=== PATIENT | female | born 1995 | race Caucasian/White ===

== ENCOUNTER 2017-08-07 13:28 | Emergency (ER) | payer OTHER ==
[2017-08-07 14:21] VITALS: BP 93/58
--- NOTE | 2017-08-07 14:27 | UC ---
Respiratory Complaint HPI - HPI Summary HPI Summary: Pt c/o cough and nasal congestion X 4 weeks. Denies fever, SOB or wheezing. - History of Current Complaint Chief Complaint: UCGeneralIllness Stated Complaint: COUGH RUNNY NOSE SORE THROAT Time Seen by Provider: 08/07/17 14:26 Hx Obtained From: Patient Hx Last Menstrual Period: 08/07/16 ?: No Onset/Duration: Gradual Onset, Lasting Weeks - 4, Still Present Timing: Intermittent Episodes Severity Initially: Mild Severity Currently: Mild Character: Cough: Nonproductive Aggravating Factors: Deep Breaths, Recumbent Position Alleviating Factors: Spontaneous Resolution Associated Signs And Symptoms: Positive: URI, Nasal Congestion - Risk Factors Pulmonary Embolism Risk Factors: Smoking Cardiac Risk Factors: Smoking Tuberculosis Risk Factors: Smoking - Allergies/Home Medications Allergies/Adverse Reactions: Allergies Allergy/AdvReac Type Severity Reaction Status Date / Time No Known Allergies Allergy Verified 08/07/17 14:21 PMH/Surg Hx/FS Hx/Imm Hx Previously Healthy: Yes - Surgical History Surgical History: Yes Surgery Procedure, Year, and Place: tonsilectomy, 1999, [facility] - Family History Known Family History: Positive: Hypertension - Social History Occupation: Employed Full-time Lives: With Family Alcohol Use: Rare Substance Use Type: None Smoking Status (MU): Heavy Every Day Tobacco Smoker Type: Cigarettes Amount Used/How Often: 1/2 PPD Length of Time of Smoking/Using Tobacco: 5 Years Have You Smoked in the Last Year: Yes - Immunization History Most Recent Influenza Vaccination: NOT CURRENT Vaccination Up to Date: Yes Review of Systems Constitutional: Negative Skin: Negative Eyes: Negative ENT: Sinus Congestion Respiratory: Cough Cardiovascular: Negative Gastrointestinal: Negative Genitourinary: Negative Motor: Negative Neurovascular: Negative Musculoskeletal: Negative Neurological: Negative Psychological: Negative Is Patient Immunocompromised?: No All Other Systems Reviewed And Are Negative: Yes Physical Exam Triage Information Reviewed: Yes Appearance: Well-Appearing Vital Signs: Initial Vital Signs Temp 98.3 F 08/07/17 14:17 Pulse 73 08/07/17 14:17 Resp 18 08/07/17 14:17 BP 93/58 08/07/17 14:17 Pulse Ox 100 08/07/17 14:17 Vital Signs Reviewed: Yes Eye Exam: Normal ENT Exam: Other ENT: Positive: Nasal congestion, Other - tongue ring Dental Exam: Normal Neck exam: Normal Respiratory Exam: Normal Cardiovascular Exam: Normal Musculoskeletal Exam: Normal Neurological Exam: Normal Psychological Exam: Normal Skin Exam: Normal UC Diagnostic Evaluation - Laboratory O2 Sat by Pulse Oximetry: 100 Respiratory Course/Dx - Differential Dx/Diagnosis Differential Diagnosis/HQI/PQRI: Bronchitis, Other - URI Provider Diagnoses: cough. URI Discharge - Discharge Plan Condition: Stable Disposition: HOME Prescriptions: Benzonatate CAP* [Tessalon 100 MG CAP*] 100 mg PO Q8H PRN #21 cap PRN Reason: Cough Patient Education Materials: Acute Cough (ED) Referrals: No Primary Care Phys,NOPCP [Primary Care Provider] - If Needed
== END 2017-08-07 14:37 | disposition home or self-care (01) ==
LOC: UCCORT 13:30
DX: J06.9 Acute upper respiratory infection, unspecified (principal); R05 Cough; F17.210 Nicotine dependence, cigarettes, uncomplicated
CPT/HCPCS: 99212; G0463

== ENCOUNTER 2017-09-09 14:13 | Emergency (ER) | payer OTHER ==
[2017-09-09 15:58] VITALS: BP 102/59
[2017-09-09] MEDS ORDERED: Acetaminophen TAB* 325 MG PO ONE (16:14)
--- NOTE | 2017-09-09 16:14 | UC ---
FLU HPI - HPI Summary HPI Summary: Pt c/o sudden onset of fatigue, fever, chills, sore throat, right side neck pain , right ear pain and generalized body aches X 1 day. Pt took genevieve epregnancy test yesterday, positive- wants confirmation. - History of Current Complaint Chief Complaint: UCGeneralIllness Stated Complaint: FLU SXS Time Seen by Provider: 09/09/17 15:55 Hx Obtained From: Patient Hx Last Menstrual Period: 08/07/16 ?: Yes Onset/Duration: Sudden Onset Severity Currently: Moderate Severity Initially: Moderate Pain Intensity: 7 Associated Signs & Symptoms: Positive: Fever, Myalgia, Sore Throat, Nasal Congestion, Headache Related Hx: Possible Flu/Infectious Exposure - Risk Factors Influenza Risk Factors: Negative - Allergy/Home Medications Allergies/Adverse Reactions: Allergies Allergy/AdvReac Type Severity Reaction Status Date / Time No Known Allergies Allergy Verified 09/09/17 15:47 PMH/Surg Hx/FS Hx/Imm Hx Previously Healthy: Yes - Surgical History Surgical History: Yes Surgery Procedure, Year, and Place: tonsilectomy, 1999, [facility] - Family History Known Family History: Positive: Hypertension - Social History Lives: With Family Alcohol Use: Rare Substance Use Type: None Smoking Status (MU): Current Every Day Smoker Type: Cigarettes Amount Used/How Often: 1/2 PPD Length of Time of Smoking/Using Tobacco: 5 Years Have You Smoked in the Last Year: Yes When Did the Patient Quit Smoking/Using Tobacco: PT HOPING TO QUIT DUE TO Cessation Counseling: Patient Advised to Stop - Immunization History Most Recent Influenza Vaccination: NOT CURRENT Vaccination Up to Date: Yes Review of Systems Constitutional: Fever, Chills, Fatigue Skin: Negative Eyes: Negative ENT: Sore Throat Respiratory: Negative Cardiovascular: Negative Gastrointestinal: Negative Genitourinary: Negative Motor: Negative Neurovascular: Negative Musculoskeletal: Myalgia Neurological: Headache Psychological: Negative Is Patient Immunocompromised?: No All Other Systems Reviewed And Are Negative: Yes Physical Exam Triage Information Reviewed: Yes Appearance: Ill-Appearing Vital Signs: Initial Vital Signs Temp 100.3 F 09/09/17 15:50 Pulse 91 09/09/17 15:50 Resp 18 09/09/17 15:50 BP 102/59 09/09/17 15:50 Pulse Ox 100 09/09/17 15:50 Vital Signs Reviewed: Yes Eye Exam: Normal ENT Exam: Other ENT: Positive: Nasal congestion Dental Exam: Normal Neck exam: Other Neck: Positive: Enlarged Nodes @ - right side submaxillary Respiratory Exam: Normal Cardiovascular Exam: Normal Musculoskeletal Exam: Normal Neurological Exam: Normal Psychological Exam: Normal Skin Exam: Normal Flu Course/Dx - Differential Dx/Diagnosis Differential Diagnosis/HQI/PQRI: Influenza, Other - . Provider Diagnoses: Influenza A. Discharge - Discharge Plan Condition: Stable Disposition: HOME Prescriptions: Pnv No.95/Ferrous Fum/Folic AC [ Tablet] 1 each PO DAILY #30 tablet Patient Education Materials: Influenza (ED), at 7 to 10 Weeks (ED) Forms: *Work Release Referrals: Dominic Chavez MD [Primary Care Provider] - Additional Instructions: Please follow up with your PCP or return to clinic as needed. Please establish care with a OB provider as soon as possible.
== END 2017-09-09 16:36 | disposition home or self-care (01) ==
LOC: UCCORT 14:13
DX: O99.519 Diseases of the respiratory system complicating pregnancy, unspecified trimester (principal); O99.330 Smoking (tobacco) complicating pregnancy, unspecified trimester; F17.210 Nicotine dependence, cigarettes, uncomplicated; J09.X2 Influenza due to identified novel influenza A virus with other respiratory manifestations
CPT/HCPCS: 84702; 87502; 99212; A9270-GY; G0463

== ENCOUNTER 2017-09-21 18:51 | Emergency (ER) | payer OTHER ==
[2017-09-21 19:36] VITALS: BP 107/56
--- NOTE | 2017-09-21 19:56 | UC ---
UC General HPI - HPI Summary HPI Summary: PT STATES SHE IS HAVING PAIN IN LOWER PELVIC AREA. SHE STATES IT MAY BE AN OVARIAN CYST THAT RUPTURED BECAUSE IT FEELS SIMILAR TO THAT BUT ALSO NOTES SHE IS 6 WEEKS WELL. DENIES VAGINAL D/C AND BLEEDING. . NO FEVER, V/ D/DYSURIA. - History of Current Complaint Chief Complaint: UCGeneralIllness Stated Complaint: PELVIC PAIN Time Seen by Provider: 09/21/17 19:46 Hx Obtained From: Patient Hx Last Menstrual Period: 08/07/16 Onset/Duration: Sudden Onset Timing: Constant Pain Intensity: 6 Associated Signs & Symptoms: Negative: Dizziness, Diarrhea, Dysuria, Fever - Allergy/Home Medications Allergies/Adverse Reactions: Allergies Allergy/AdvReac Type Severity Reaction Status Date / Time No Known Allergies Allergy Verified 09/21/17 19:30 PMH/Surg Hx/FS Hx/Imm Hx - Additional Past Medical History Additional PMH: OVARIAN CYSTS, 6 WEEKS Previously Healthy: Yes - Surgical History Surgical History: Yes Surgery Procedure, Year, and Place: tonsilectomy, 1999, [facility] - Family History Known Family History: Positive: Hypertension - Social History Occupation: Employed Full-time Lives: With Family Alcohol Use: Rare Alcohol Amount: NONE DURING Substance Use Type: None Smoking Status (MU): Former Smoker Type: Cigarettes Amount Used/How Often: 1/2 PPD Length of Time of Smoking/Using Tobacco: 5 Years Have You Smoked in the Last Year: Yes When Did the Patient Quit Smoking/Using Tobacco: 3 DAYS - Immunization History Most Recent Influenza Vaccination: NOT CURRENT Vaccination Up to Date: Yes Review of Systems Constitutional: Negative Skin: Negative Eyes: Negative ENT: Negative Respiratory: Negative Cardiovascular: Negative Gastrointestinal: Abdominal Pain Genitourinary: Negative Motor: Negative Neurovascular: Negative Musculoskeletal: Negative Neurological: Negative Psychological: Negative Is Patient Immunocompromised?: No All Other Systems Reviewed And Are Negative: Yes Physical Exam Triage Information Reviewed: Yes Appearance: Well-Appearing Vital Signs: Initial Vital Signs Temp 98.7 F 09/21/17 19:31 Pulse 87 09/21/17 19:31 Resp 22 09/21/17 19:31 BP 107/56 09/21/17 19:31 Pulse Ox 100 09/21/17 19:31 Eyes: Positive: Conjunctiva Clear ENT: Positive: Normal ENT inspection Neck: Positive: Supple, Nontender, No Lymphadenopathy Respiratory: Positive: Lungs clear, Normal breath sounds, No respiratory distress Cardiovascular: Positive: RRR, No Murmur, Pulses Normal Abdomen Description: Positive: No Organomegaly, Soft, Other: - Tender R lower abdomen. Negative: CVA Tenderness (R), CVA Tenderness (L), Distended, Guarding Bowel Sounds: Positive: Present Musculoskeletal Exam: Normal Neurological: Positive: Alert Psychological: Positive: Age Appropriate Behavior Skin Exam: Normal Course/Dx - Course Course Of Treatment: has not seen ob yet and no u/s thus r/o ectopic. doubt bowel pathology/appendicitis. - Differential Dx - Multi-Symptom Provider Diagnoses: R lower abdominal pain. 6 weeks . r/o ectopic preganacy Discharge - Discharge Plan Condition: Stable Disposition: TRANS HIGHER LVL OF CARE FAC Referrals: Dominic Chavez MD [Primary Care Provider] - Additional Instructions: GO DIRECTLY TO THE ER FROM URGENT CARE FOR EVALUATION OF PELVIC PAIN WITH
== END 2017-09-21 20:00 | disposition short-term general hospital (02) ==
LOC: UCCORT 18:51
DX: Z53.21 Procedure and treatment not carried out due to patient leaving prior to being seen by health care provider (principal); O26.891 Other specified pregnancy related conditions, first trimester; Z3A.01 Less than 8 weeks gestation of pregnancy; R10.2 Pelvic and perineal pain
CPT/HCPCS: 99211; G0463

== ENCOUNTER 2018-02-19 12:40 | Emergency (ER) | payer OTHER ==
[2018-02-19 13:07] VITALS: BP 122/53
--- NOTE | 2018-02-19 13:53 | UC ---
Dental HPI - HPI Summary HPI Summary: Pt c/o sudden onset of right upper tooth pain. Pt states that she "broke her tooth" 3-4 months ago and now has c/o swelling tenderness at gum line of fractured tooth. - History of Current Complaint Chief Complaint: UCDentalProblem Stated Complaint: DENTAL COMPLAINT Time Seen by Provider: 02/19/18 13:45 Hx Obtained From: Patient Hx Last Menstrual Period: past month after going off depo ?: No Onset/Duration: Sudden Onset, Lasting Days, Still Present Severity: Moderate Pain Intensity: 6 Aggravating Factor(s): Heat, Cold, Chewing Related History: Swelling - Allergies/Home Medications Allergies/Adverse Reactions: Allergies Allergy/AdvReac Type Severity Reaction Status Date / Time No Known Allergies Allergy Verified 02/19/18 13:01 Home Medications: Home Medications Naproxen Sodium [Aleve] 440 mg PO BID PRN 02/19/18 [History Confirmed 02/19/18] PMH/Surg Hx/FS Hx/Imm Hx Previously Healthy: Yes - Surgical History Surgical History: Yes Surgery Procedure, Year, and Place: tonsilectomy, 1999, [facility] - Family History Known Family History: Positive: Hypertension - Social History Occupation: Employed Full-time Lives: With Family Alcohol Use: Rare Alcohol Amount: NONE DURING Substance Use Type: None Smoking Status (MU): Heavy Every Day Tobacco Smoker Type: Cigarettes Amount Used/How Often: 1/2 PPD Length of Time of Smoking/Using Tobacco: 5 Years Have You Smoked in the Last Year: Yes When Did the Patient Quit Smoking/Using Tobacco: 3 DAYS - Immunization History Most Recent Influenza Vaccination: NOT CURRENT Vaccination Up to Date: Yes Review of Systems Constitutional: Negative Skin: Other - swelling right cheek Eyes: Negative ENT: Dental Pain Respiratory: Negative Cardiovascular: Negative Gastrointestinal: Negative Genitourinary: Negative Motor: Negative Neurovascular: Negative Musculoskeletal: Negative Neurological: Negative Psychological: Negative Is Patient Immunocompromised?: No All Other Systems Reviewed And Are Negative: Yes Physical Exam Triage Information Reviewed: Yes Appearance: Pain Distress Vital Signs: Initial Vital Signs Temp 99 F 02/19/18 13:02 Pulse 82 02/19/18 13:02 Resp 14 02/19/18 13:02 BP 122/53 02/19/18 13:02 Pulse Ox 98 02/19/18 13:02 Vital Signs Reviewed: Yes Eye Exam: Normal ENT Exam: Normal Dental Exam: Other Dental: Positive: Percussion Tenderness @ - fractured tooth, Dental Fracture @ - right upper first molar Neck exam: Normal Neck: Positive: Enlarged Nodes @ - right submandibular Respiratory Exam: Normal Cardiovascular Exam: Normal Musculoskeletal Exam: Normal Neurological Exam: Normal Psychological Exam: Normal Skin Exam: Normal Dental Complaint Course/Dx - Differential Dx/Diagnosis Differential Diagnosis/Dx: Dental Abscess, Dental Caries, Fractured Tooth Provider Diagnoses: fractured tooth. dental abscess Discharge - Sign-Out/Discharge Documenting (check all that apply): Patient Departure - Discharge Plan Condition: Stable Disposition: HOME Prescriptions: Clindamycin Cap(NF) [Clindamycin Cap 300 mg Cap(NF)] 300 mg PO Q8H #30 cap Fluconazole 100 MG TAB* [Diflucan 100 MG TAB*] 100 mg PO DAILY #2 tab Lidocaine 2% VISCOUS* [Xylocaine 2% Viscous*] 15 ml SWISH SPIT Q4H PRN #1 btl PRN Reason: Pain Patient Education Materials: Dental Abscess (ED), Toothache (ED) Referrals: No Primary Care Phys,NOPCP [Primary Care Provider] - - Billing Disposition and Condition Condition: STABLE Disposition: Home
== END 2018-02-19 14:06 | disposition home or self-care (01) ==
LOC: UCCORT 12:40
DX: K04.7 Periapical abscess without sinus (principal); S02.5XXA Fracture of tooth (traumatic), initial encounter for closed fracture; F17.210 Nicotine dependence, cigarettes, uncomplicated; X58.XXXA Exposure to other specified factors, initial encounter; Y92.9 Unspecified place or not applicable
CPT/HCPCS: 99212; G0463

== ENCOUNTER 2018-05-13 16:21 | Emergency (ER) | payer OTHER ==
[2018-05-13 16:56] VITALS: BP 110/61
--- NOTE | 2018-05-13 16:57 | UC ---
Throat Pain/Nasal Magdaleno HPI - HPI Summary HPI Summary: 23 yo female presents with body aches, fatigue, nausea, vomiting, and headache for the last 3 days - all have significantly improved today. She also tells me that 2 days ago she was hurrying doing laundry and was bent over by her dresser - when she came up she hit the back of her head on the open drawer. No LOC. Since that time has had TTP in the area. Has not been taking anything OTC for her symptoms. She missed yesterday and today of work and is requesting a note. She feels well enough and plans to return tomorrow. Denies fever, chills, cough , SOB, chest pain, abdominal pain, dysuria, or chance of . - History of Current Complaint Chief Complaint: UCGeneralIllness Stated Complaint: COLD CHILLS/CAIN/BUMP OM HEAD Time Seen by Provider: 05/13/18 16:56 Hx Obtained From: Patient Hx Last Menstrual Period: 05/09/18 Onset/Duration: Sudden Onset Severity: Mild Pain Intensity: 4 Pain Scale Used: 0-10 Numeric - Allergies/Home Medications Allergies/Adverse Reactions: Allergies Allergy/AdvReac Type Severity Reaction Status Date / Time No Known Allergies Allergy Verified 05/13/18 16:53 Home Medications: Home Medications Ibuprofen 600 mg PO ONCE 05/13/18 [History Confirmed 05/13/18] PMH/Surg Hx/FS Hx/Imm Hx - Additional Past Medical History Additional PMH: None - Surgical History Surgical History: Yes Surgery Procedure, Year, and Place: tonsilectomy, 1999, [facility] - Family History Known Family History: Positive: Hypertension - Social History Occupation: Employed Full-time Lives: With Family Alcohol Use: Rare Alcohol Amount: NONE DURING Substance Use Type: None Smoking Status (MU): Heavy Every Day Tobacco Smoker Type: Cigarettes Amount Used/How Often: 1/2 PPD Length of Time of Smoking/Using Tobacco: 5 Years Have You Smoked in the Last Year: Yes When Did the Patient Quit Smoking/Using Tobacco: 3 DAYS - Immunization History Most Recent Influenza Vaccination: NOT CURRENT Vaccination Up to Date: Yes Review of Systems Constitutional: Fatigue, Other - Body aches Skin: Negative Eyes: Negative ENT: Negative Respiratory: Negative Cardiovascular: Negative Gastrointestinal: Vomiting, Nausea Genitourinary: Negative Neurovascular: Negative Neurological: Headache Psychological: Negative All Other Systems Reviewed And Are Negative: Yes Physical Exam - Summary Physical Exam Summary: GENERAL: NAD. WDWN. No pain distress. SKIN: No rashes, sores, lesions, or open wounds. HEENT: Head: AT/NC. No mora's sign or raccoon eyes. Eyes: EOM intact. Conjunctiva clear without inflammation or discharge. Ears: Hearing grossly normal. TMs intact, no bulging, erythema, or edema. Nose: Nasal mucosa pink and moist. NTTP maxillary and frontal sinus. Throat: Posterior oropharynx without exudates, erythema, or tonsillar enlargement. Uvula midline. NECK: Supple. Nontender. No lymphadenopathy. CHEST: CTAB. No r/r/w. No accessory muscle use. Breathing comfortably and in no distress. CV: RRR. Without m/r/g. Pulses intact. Cap refill <2seconds NEURO: Alert. PSYCH: Age appropriate behavior. Triage Information Reviewed: Yes Vital Signs: Initial Vital Signs Temp 98.1 F 05/13/18 16:50 Pulse 91 05/13/18 16:50 Resp 14 05/13/18 16:50 BP 110/61 05/13/18 16:50 Pulse Ox 99 05/13/18 16:50 Vital Signs Reviewed: Yes Throat Pain/Nasal Course/Dx - Course Course Of Treatment: PE is WNL and she is feeling better today. Suspect viral illness - Differential Dx/Diagnosis Provider Diagnoses: Viral syndrome Discharge - Sign-Out/Discharge Documenting (check all that apply): Patient Departure All imaging exams completed and their final reports reviewed: No Studies - Discharge Plan Condition: Stable Disposition: HOME Prescriptions: Ondansetron TAB* [Zofran 4 MG Tab*] 4 mg PO Q8H PRN #16 tab PRN Reason: Nausea Patient Education Materials: Viral Syndrome (ED) Forms: *Work Release Referrals: No Primary Care Phys,NOPCP [Primary Care Provider] - Additional Instructions: If you develop a fever, shortness of breath, chest pain, new or worsening symptoms - please call your PCP or go to the ED. - Billing Disposition and Condition Condition: STABLE Disposition: Home - Attestation Statements Provider Attestation: I was available for consult. This patient was seen by the CHRISTINA. The patient was not presented to, seen by, or examined by me. -Yvette
== END 2018-05-13 17:07 | disposition home or self-care (01) ==
LOC: UCCORT 16:21
DX: B34.9 Viral infection, unspecified (principal); F17.210 Nicotine dependence, cigarettes, uncomplicated
CPT/HCPCS: 99212; G0463

== ENCOUNTER 2018-06-30 12:12 | Emergency (ER) | payer OTHER ==
--- NOTE | 2018-06-30 12:28 | UC ---
Throat Pain/Nasal Magdaleno HPI - HPI Summary HPI Summary: 23 yo female presents with sinus pain/pressure/congestion, sore throat, productive cough, and fatigue for the last 10 days. Getting increasingly worse. The last two nights she has had a temperature of 100.3F max. 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 She has been taking dayquill daily with no relief. She is still smoking daily. Denies SOB, chest pain, n/v. She also complaints of "white spots" to her back that are mildly itchy at times. She does go tanning often. These spots have been there for a few weeks. - History of Current Complaint Stated Complaint: CAIN,RUNNY NOSE,BILAT EAR AIN,COUGH Time Seen by Provider: 06/30/18 12:27 Hx Obtained From: Patient Hx Last Menstrual Period: 05/09/18 Onset/Duration: Gradual Onset Severity: Moderate Pain Intensity: 5 Pain Scale Used: 0-10 Numeric Cough: Productive - Allergies/Home Medications Allergies/Adverse Reactions: Allergies Allergy/AdvReac Type Severity Reaction Status Date / Time No Known Allergies Allergy Verified 06/30/18 12:27 Home Medications: Home Medications D-Methorphan/PE/Acetaminophen [Vicks Dayquil Cold & Flu] 2 cap PO Q6H PRN [History Confirmed 06/30/18] Ibuprofen TAB* [Advil TAB*] 800 mg PO Q8H PRN 06/30/18 [History Confirmed ] PMH/Surg Hx/FS Hx/Imm Hx - Additional Past Medical History Additional PMH: None - Surgical History Surgical History: Yes Surgery Procedure, Year, and Place: tonsilectomy, 1999, [facility] - Family History Known Family History: Positive: Hypertension - Social History Occupation: Student Lives: With Family Alcohol Use: Rare Alcohol Amount: NONE DURING Substance Use Type: None Smoking Status (MU): Heavy Every Day Tobacco Smoker Type: Cigarettes Amount Used/How Often: 1/2 PPD Length of Time of Smoking/Using Tobacco: 5 Years Have You Smoked in the Last Year: Yes When Did the Patient Quit Smoking/Using Tobacco: 3 DAYS - Immunization History Most Recent Influenza Vaccination: NOT CURRENT Vaccination Up to Date: Yes Review of Systems All Other Systems Reviewed And Are Negative: Yes Constitutional: Positive: Fever, Fatigue Skin: Positive: Rash Eyes: Positive: Negative ENT: Positive: Sore Throat, Ear Ache, Nasal Discharge, Sinus Congestion, Sinus Pain/Tenderness Respiratory: Positive: Cough Cardiovascular: Positive: Negative Gastrointestinal: Positive: Negative Neurovascular: Positive: Negative Neurological: Positive: Negative Psychological: Positive: Negative Physical Exam - Summary Physical Exam Summary: GENERAL: NAD. WDWN. No pain distress. SKIN: On upper back: Multiple 3-4mm diameter hypopigmentated areas. Scant scaling. NTTP. No erythema, drainage, or open wound. HEENT: Head: AT/NC Eyes: EOM intact. Conjunctiva clear without inflammation or discharge. Ears: Hearing grossly normal. TMs intact, no bulging, erythema, or edema. Nose: Nasal mucosa mildly swollen and erythematous with yellow discharge. TTP maxillary and frontal sinus. Positive post nasal drip Throat: Posterior oropharynx without exudates or erythema. Uvula midline. NECK: Supple. Nontender. No lymphadenopathy. CHEST: CTAB. No r/r/w. No accessory muscle use. Breathing comfortably and in no distress. CV: RRR. Without m/r/g. Pulses intact. NEURO: Alert. PSYCH: Age appropriate behavior. Triage Information Reviewed: Yes Vital Signs: Vital Signs: Temp Pulse Resp BP Pulse Ox 98.6 F 96 16 101/66 100 06/30/18 12:25 06/30/18 12:25 06/30/18 12:25 06/30/18 12:25 06/30/18 12:25 Vital Signs Reviewed: Yes Throat Pain/Nasal Course/Dx - Course Course Of Treatment: Sinusitis. Cough. Tinea versicolor. - Differential Dx/Diagnosis Provider Diagnosis: Sinusitis, Tinea versicolor, Cough Discharge - Sign-Out/Discharge Documenting (check all that apply): Patient Departure All imaging exams completed and their final reports reviewed: No Studies - Discharge Plan Condition: Stable Disposition: HOME Prescriptions: Azithromycin TAB* [Zithromax TAB (Z-ESME) 250 mg #6 tabs] 2 tab PO .TODAY, THEN 1 DAILY #1 esme Ketoconazole 2 % CREAM (NF) [Nizoral 2% CREAM (NF)] 1 applic TOPICAL BID #1 tube Patient Education Materials: Sinusitis (ED), Tinea Versicolor (ED) Forms: *Work Release Referrals: No Primary Care Phys,NOPCP [Primary Care Provider] - Additional Instructions: If you develop a fever, shortness of breath, chest pain, new or worsening symptoms - please call your PCP or go to the ED. - Billing Disposition and Condition Condition: STABLE Disposition: Home
[2018-06-30 12:31] VITALS: BP 101/66
== END 2018-06-30 12:45 | disposition home or self-care (01) ==
LOC: UCCORT 12:12
DX: J32.9 Chronic sinusitis, unspecified (principal); B36.0 Pityriasis versicolor; R05 Cough; F17.210 Nicotine dependence, cigarettes, uncomplicated
CPT/HCPCS: 99212; G0463

== ENCOUNTER 2018-07-28 09:06 | Emergency (ER) | payer OTHER ==
[2018-07-28 10:05] LABS: ABS Basophils 0 10^3/ul (0-0.2); ABS Eosinophils 0.1 10^3/ul (0-0.6); ABS Lymphocytes 1.5 10^3/ul (1.0-4.8); ABS Monocytes 0.3 10^3/ul (0-0.8); ABS Neutrophils 2.3 10^3/ul (1.5-7.7); ABS Nucleated RBC 0 10^3/ul; Hematocrit 40 % (35-47); Hemoglobin 13.6 g/dl (12.0-16.0); Lymphocyte % 35.7 %; Mean Corpuscular HGB Conc 34 g/dl (31-36); Mean Corpuscular Hemoglobin 29 pg (27-31); Mean Corpuscular Volume 86 fL (80-97); Mean Platelet Volume 10.6 fL (7.4-10.4); Nucleated Red Blood Cells % 0; Platelet Count 152 10^3/ul (150-450); Red Blood Count 4.71 10^6/ul (4.00-5.40); Red Cell Distribution Width 13 % (10.5-15); White Blood Count 4.3 10^3/ul (3.5-10.8)
[2018-07-28 10:26] LABS: ALT 17 U/L (7-52); AST 17 U/L (13-39); Albumin 4.7 g/dL (3.2-5.2); Alkaline Phosphatase 40 U/L (34-104); Anion Gap 6 mmol/L (2-11); BUN/Creatinine Ratio 10.2 (8-20); Blood Urea Nitrogen 9 mg/dL (6-24); CO2 Carbon Dioxide 26 mmol/L (22-32); Calcium 9.8 mg/dL (8.6-10.3); Chloride 108 mmol/L (101-111); EGFR Non-African American 79.6 (>60); Globulin 2.3 g/dL (2-4); Glucose 93 mg/dL (70-100); Magnesium 1.9 mg/dL (1.9-2.7); Potassium 3.8 mmol/L (3.5-5.0); Sodium 140 mmol/L (135-145)
[2018-07-28 10:31] LABS: HCG Pregnancy < 0.60 mIU/mL
[2018-07-28 11:11] VITALS: BP 122/61
--- NOTE | 2018-07-28 11:43 | ED ---
HPI Chest Pain - HPI Summary HPI Summary: Patient is a 23-year-old female with an unremarkable past medical history presenting to the ED with left-sided chest pain radiating down to the left shoulder. She states she took a caffeine pill yesterday and is feelingthat time. She does have a history of anxiety and states this feels somewhat similar. Pain is intermittent, sharp, radiating to the left arm feels "heavy." She denies any fevers, sweats, chills. Denies any SOB. Denies any other weakness or other symptoms at this time. She has not taken any medication for relief. She did not have caffeine this morning. Symptoms are not better with rest or worse with exertion. - History of Current Complaint Chief Complaint: EDChestPainROMI Time Seen by Provider: 07/28/18 09:31 Hx Obtained From: Patient Hx Last Menstrual Period: 05/09/18 Onset/Duration: Started Hours Ago Timing: Constant Initial Severity: Moderate Current Severity: Moderate Pain Intensity: 4 Pain Scale Used: 0-10 Numeric Chest Pain Location: Left Anterior Chest Pain Radiates: Yes Chest Pain Radiates To:: Shoulder, Arm Character: Dull/Aching Aggravating Factor(s): Nothing Associated Signs and Symptoms: Positive: Anxiety. Negative: Chest Pain, Vision Changes, Recent Stress, Headaches, Numbness, Lightheadedness, Diaphoresis, Palpitations, Productive Cough - Risk Factors Pulmonary Embolism Risk Factors: Negative TAD Risk Factors: Negative - Allergy/Home Medications Allergies/Adverse Reactions: Allergies Allergy/AdvReac Type Severity Reaction Status Date / Time No Known Allergies Allergy Verified 07/28/18 09:21 Home Medications: Home Medications Multivitamin [Multivitamins] 1 cap PO DAILY 07/28/18 [History Confirmed 07/28/18 ] PMH/Surg Hx/FS Hx/Imm Hx Previously Healthy: Yes Endocrine/Hematology History: Denies: Hx Thyroid Disease Cardiovascular History: Denies: Hx Hypertension Respiratory History: Denies: Hx Asthma, Hx Lung Cancer - Surgical History Surgery Procedure, Year, and Place: tonsilectomy, 1999, [facility] - Immunization History Hx Pertussis Vaccination: No Immunizations Up to Date: Yes Infectious Disease History: No Infectious Disease History: Reports: Hx Shingles Denies: Hx Clostridium Difficile, Hx Hepatitis, Hx Human Immunodeficiency Virus (HIV), Hx of Known/Suspected MRSA, Hx Tuberculosis, Hx Known/Suspected VRE , Hx Known/Suspected VRSA, History Other Infectious Disease, Traveled Outside the [place] in Last 30 Days - Family History Known Family History: Positive: Hypertension - Social History Occupation: Employed Full-time Lives: With Family Alcohol Use: Rare Alcohol Amount: NONE DURING Hx Substance Use: No Substance Use Type: Reports: None Hx Tobacco Use: Yes Smoking Status (MU): Light Every Day Tobacco Smoker Type: Cigarettes Amount Used/How Often: 1/2 PPD Length of Time of Smoking/Using Tobacco: 5 Years Have You Smoked in the Last Year: Yes Review of Systems Negative: Fever, Chills, Fatigue, Skin Diaphoresis Negative: Dental Pain, Sore Throat, Ear Ache, Nasal Discharge Positive: Chest Pain Negative: Shortness Of Breath, Cough Negative: Abdominal Pain, Diarrhea, Nausea Genitourinary: Negative Positive: no symptoms reported, see HPI Positive: Myalgia - left arm pain described as "heavy" Skin: Negative Positive: Anxious All Other Systems Reviewed And Are Negative: Yes Physical Exam Triage Information Reviewed: Yes Vital Signs On Initial Exam: Initial Vitals Temp Pulse Resp BP Pulse Ox 98.1 F 81 16 123/85 100 07/28/18 09:17 07/28/18 09:17 07/28/18 09:17 07/28/18 09:17 07/28/18 09:17 Vital Signs Reviewed: Yes Appearance: Positive: Well-Appearing, Well-Nourished Skin: Positive: Warm, Skin Color Reflects Adequate Perfusion Head/Face: Positive: Normal Head/Face Inspection Eyes: Positive: EOMI, JES, Conjunctiva Clear Neck: Positive: Supple, No Lymphadenopathy Respiratory/Lung Sounds: Positive: Clear to Auscultation, Breath Sounds Present Cardiovascular: Positive: RRR, Pulses are Symmetrical in both Upper and Lower Extremities. Negative: Leg Edema Left, Leg Edema Right Bowel Sounds: Positive: Present Musculoskeletal: Positive: Normal Neurological: Positive: Sensory/Motor Intact, Alert, Oriented to Person Place, Time, Speech Normal Psychiatric: Positive: Normal, Affect/Mood Appropriate Diagnostics - Vital Signs Vital Signs Temp Pulse Resp BP Pulse Ox 07/28/18 11:11 98.9 F 93 17 122/61 100 07/28/18 11:00 85 16 100 07/28/18 10:51 77 13 122/61 99 07/28/18 10:06 80 26 124/65 100 07/28/18 10:00 83 17 99 07/28/18 09:37 86 18 113/83 99 07/28/18 09:35 75 26 99 07/28/18 09:17 98.1 F 81 16 123/85 100 - Laboratory Lab Results: Lab Results 07/28/18 07/28/18 07/28/18 Range/Units 09:50 09:50 09:50 WBC 4.3 (3.5-10.8) 10^3/ul RBC 4.71 (4.00-5.40) 10^6/ul Hgb 13.6 (12.0-16.0) g/dl Hct 40 (35-47) % MCV 86 (80-97) fL MCH 29 (27-31) pg MCHC 34 (31-36) g/dl RDW 13 (10.5-15) % Plt Count 152 (150-450) 10^3/ul MPV 10.6 H (7.4-10.4) fL Neut % (Auto) 53.8 % Lymph % (Auto) 35.7 % Dodge % (Auto) 7.8 % Eos % (Auto) 2.0 % Baso % (Auto) 0.7 % Absolute Neuts (auto) 2.3 (1.5-7.7) 10^3/ul Absolute Lymphs (auto) 1.5 (1.0-4.8) 10^3/ul Absolute Monos (auto) 0.3 (0-0.8) 10^3/ul Absolute Eos (auto) 0.1 (0-0.6) 10^3/ul Absolute Basos (auto) 0 (0-0.2) 10^3/ul Absolute Nucleated RBC 0 10^3/ul Nucleated RBC % 0 D-Dimer, Quantitative (Less Than 230) ng/mL Sodium 140 (135-145) mmol/L Potassium 3.8 (3.5-5.0) mmol/L Chloride 108 (101-111) mmol/L Carbon Dioxide 26 (22-32) mmol/L Anion Gap 6 (2-11) mmol/L BUN 9 (6-24) mg/dL Creatinine 0.88 (0.51-0.95) mg/dL Est GFR ( Amer) 96.4 (>60) Est GFR (Non-Af Amer) 79.6 (>60) BUN/Creatinine Ratio 10.2 (8-20) Glucose 93 (70-100) mg/dL Lactic Acid 0.9 (0.5-2.0) mmol/L Calcium 9.8 (8.6-10.3) mg/dL Magnesium 1.9 (1.9-2.7) mg/dL Total Bilirubin 0.70 (0.2-1.0) mg/dL AST 17 (13-39) U/L ALT 17 (7-52) U/L Alkaline Phosphatase 40 (34-104) U/L Troponin I 0.00 (<0.04) ng/mL Total Protein 7.0 (6.4-8.9) g/dL Albumin 4.7 (3.2-5.2) g/dL Globulin 2.3 (2-4) g/dL Albumin/Globulin Ratio 2.0 (1-3) Beta HCG, Quant < 0.60 mIU/mL 07/28/18 Range/Units 09:50 WBC (3.5-10.8) 10^3/ul RBC (4.00-5.40) 10^6/ul Hgb (12.0-16.0) g/dl Hct (35-47) % MCV (80-97) fL MCH (27-31) pg MCHC (31-36) g/dl RDW (10.5-15) % Plt Count (150-450) 10^3/ul MPV (7.4-10.4) fL Neut % (Auto) % Lymph % (Auto) % Dodge % (Auto) % Eos % (Auto) % Baso % (Auto) % Absolute Neuts (auto) (1.5-7.7) 10^3/ul Absolute Lymphs (auto) (1.0-4.8) 10^3/ul Absolute Monos (auto) (0-0.8) 10^3/ul Absolute Eos (auto) (0-0.6) 10^3/ul Absolute Basos (auto) (0-0.2) 10^3/ul Absolute Nucleated RBC 10^3/ul Nucleated RBC % D-Dimer, Quantitative < 200 (Less Than 230) ng/mL Sodium (135-145) mmol/L Potassium (3.5-5.0) mmol/L Chloride (101-111) mmol/L Carbon Dioxide (22-32) mmol/L Anion Gap (2-11) mmol/L BUN (6-24) mg/dL Creatinine (0.51-0.95) mg/dL Est GFR ( Amer) (>60) Est GFR (Non-Af Amer) (>60) BUN/Creatinine Ratio (8-20) Glucose (70-100) mg/dL Lactic Acid (0.5-2.0) mmol/L Calcium (8.6-10.3) mg/dL Magnesium (1.9-2.7) mg/dL Total Bilirubin (0.2-1.0) mg/dL AST (13-39) U/L ALT (7-52) U/L Alkaline Phosphatase (34-104) U/L Troponin I (<0.04) ng/mL Total Protein (6.4-8.9) g/dL Albumin (3.2-5.2) g/dL Globulin (2-4) g/dL Albumin/Globulin Ratio (1-3) Beta HCG, Quant mIU/mL Result Diagrams: 07/28/18 09:50 07/28/18 09:50 Lab Statement: Any lab studies that have been ordered have been reviewed, and results considered in the medical decision making process. Chest Pain Course/Dx - Course Course Of Treatment: Patient is a 23-year-old female is evaluated for left sided chest pain with radiation of left shoulder after taking caffeine pill. She states she was at her physician's office this morning when she had a elevated blood pressure at 143/92 and sinus come to the ED for further evaluation. Labs are obtained including a troponin which is 0.00 and a negative d-dimer. Other labs all unremarkable. Patient is feeling improved in the ED and she will be sent home with strict return precautions. - Chest Pain Differential Diagnosis/HQI/PQRI: Chest Wall - Diagnoses Provider Diagnoses: Caffeine adverse reaction, Atypical chest pain Discharge - Sign-Out/Discharge Documenting (check all that apply): Patient Departure - Discharge Plan Condition: Stable Disposition: HOME Referrals: No Primary Care Phys,NOPCP [Primary Care Provider] - - Billing Disposition and Condition Condition: STABLE Disposition: Home
== END 2018-07-28 11:11 | disposition home or self-care (01) ==
LOC: ED 09:06
DX: R07.89 Other chest pain (principal); T43.615A Adverse effect of caffeine, initial encounter; Y92.9 Unspecified place or not applicable; F17.210 Nicotine dependence, cigarettes, uncomplicated
CPT/HCPCS: 36415; 71046; 80053; 83605; 83735; 84484; 84702; 85025; 85379; 93005; 99282

== ENCOUNTER 2019-04-21 13:28 | Emergency (ER) | payer OTHER ==
[2019-04-21 14:47] LABS: Urine Appearance Cloudy; Urine Bilirubin Negative (Negative); Urine Blood Negative (Negative); Urine Color Yellow; Urine Glucose Negative (Negative); Urine Ketones Negative (Negative); Urine Nitrite Negative (Negative); Urine Protein Negative (Negative); Urine Specific Gravity 1.006 (1.010-1.030); Urine Urobilinogen Negative (Negative)
[2019-04-21] MEDS ORDERED: NS 0.9% 1000 ML** 1,000 ML IV ONE (15:47)
[2019-04-21] MEDS ORDERED: Famotidine IV* 10 MG/ML 2 ML (20 mg) IV SLOW PU ONE (15:47)
[2019-04-21] MEDS ORDERED: Ondansetron INJ* 2 MG/ML VIAL IV ONE (15:47)
--- NOTE | 2019-04-21 15:55 | ED ---
Abdominal Pain/Female - HPI Summary HPI Summary: This patient is a 24 year old F presenting to [facility] accompanied by boyfriend with a chief complaint of abdominal pain since 04/17/19. Patient states that she was drinking on Saturday04/17/19 approximately 5 to 6 drinks. Patient states that she got sick and ended up vomiting. Since this episode she has been having abdominal pain. The patient rates the pain 4/10 in severity characterized as sharp. Symptoms aggravated by nothing. Symptoms alleviated by nothing. Patient reports abdominal pain. Patient denies nausea, vomiting, vaginal bleeding, vaginal discharge and diarrhea. Patient reports EtOH use and tobacco use. Patient denies substance abuse. Allergies Allergy/AdvReac Type Severity Reaction Status Date / Time No Known Allergies Allergy Verified 08/06/18 13:27 Home Medications Medication Instructions Recorded Confirmed Type Omeprazole 20 mg PO QAM 14 Days #14 capsule. 04/21/19 Rx - History of Current Complaint Chief Complaint: EDAbdPain Stated Complaint: UPPER ABD PAIN/NAUSEA PER PT Time Seen by Provider: 04/21/19 15:38 Hx Obtained From: Patient Hx Last Menstrual Period: 07/23/18 Onset/Duration: Gradual Onset, Lasting Days Timing: Constant Severity Currently: Mild Pain Intensity: 4 Pain Scale Used: 0-10 Numeric Location: Umbilical Radiates: No Aggravating Factor(s): Nothing Alleviating Factor(s): Nothing Associated Signs and Symptoms: Negative: Vaginal Bleeding, Vaginal Discharge, Nausea, Vomiting, Diarrhea Allergies/Adverse Reactions: Allergies Allergy/AdvReac Type Severity Reaction Status Date / Time No Known Allergies Allergy Verified 08/06/18 13:27 PMH/Surg Hx/FS Hx/Imm Hx Endocrine/Hematology History: Denies: Hx Thyroid Disease Cardiovascular History: Denies: Hx Hypertension Respiratory History: Denies: Hx Asthma, Hx Lung Cancer - Surgical History Surgery Procedure, Year, and Place: tonsilectomy, 1999, [facility] Infectious Disease History: No Infectious Disease History: Reports: Hx Shingles Denies: Hx Clostridium Difficile, Hx Hepatitis, Hx Human Immunodeficiency Virus (HIV), Hx of Known/Suspected MRSA, Hx Tuberculosis, Hx Known/Suspected VRE , Hx Known/Suspected VRSA, History Other Infectious Disease, Traveled Outside the [place] in Last 30 Days - Family History Known Family History: Positive: Hypertension - Social History Alcohol Use: Rare Alcohol Amount: NONE DURING Hx Substance Use: No Substance Use Type: Reports: None Hx Tobacco Use: Yes Smoking Status (MU): Light Every Day Tobacco Smoker Type: Cigarettes Amount Used/How Often: 5-6 cigarettes daily Length of Time of Smoking/Using Tobacco: 5 Years Have You Smoked in the Last Year: Yes Review of Systems Negative: Fever Positive: Abdominal Pain. Negative: Vomiting, Diarrhea, Nausea Negative: discharge - Vaginal discharge or vaginal bleeding All Other Systems Reviewed And Are Negative: Yes Physical Exam - Summary Physical Exam Summary: Constitutional: Well-developed, Well-nourished, Alert. (-) Distressed Skin: Warm, Dry HENT: Normocephalic; Atraumatic Eyes: Conjunctiva normal Neck: Musculoskeletal ROM normal neck. (-) JVD, (-) Stridor, (-) Tracheal deviation Cardio: Rhythm regular, rate normal, Heart sounds normal; Intact distal pulses; The pedal pulses are 2+ and symmetric. Radial pulses are 2+ and symmetric. (-) Murmur Pulmonary/Chest wall: Effort normal. (-) Respiratory distress, (-) Wheezes, (-) Rales Abd: Soft, (-) tenderness, (-) Distension, (-) Guarding, (-) Rebound Musculoskeletal: (-) Edema Lymph: (-) Cervical adenopathy Neuro: Alert, Oriented x3 Psych: Mood and affect Normal Triage Information Reviewed: Yes Vital Signs On Initial Exam: Initial Vitals Temp Pulse Resp BP Pulse Ox 97.5 F 98 16 128/77 100 04/21/19 13:48 04/21/19 13:48 04/21/19 13:48 04/21/19 13:48 04/21/19 13:48 Vital Signs Reviewed: Yes Diagnostics - Vital Signs Vital Signs Temp Pulse Resp BP Pulse Ox 04/21/19 15:39 87 97 04/21/19 15:37 83 127/68 98 04/21/19 13:48 97.5 F 98 16 128/77 100 - Laboratory Lab Results: Lab Results 04/21/19 Range/Units 14:31 Urine Color Yellow Urine Appearance Cloudy Urine pH 8.0 (5-9) Ur Specific [place] 1.006 L (1.010-1.030) Urine Protein Negative (Negative) Urine Ketones Negative (Negative) Urine Blood Negative (Negative) Urine Nitrate Negative (Negative) Urine Bilirubin Negative (Negative) Urine Urobilinogen Negative (Negative) Ur Leukocyte Esterase Negative (Negative) Urine Glucose Negative (Negative) Result Diagrams: 04/21/19 16:11 04/21/19 16:11 Lab Statement: Any lab studies that have been ordered have been reviewed, and results considered in the medical decision making process. Abdominal Pain Fem Course/Dx - Course Course Of Treatment: Patient is here with midepigastric abdominal pain after drinking heavily on Saturday night. Patient is overall well-appearing with a benign exam. Patient had a CBC, CMP, lipase performed which are all grossly unremarkable. Patient had negative ultrasound for cholecystitis. Patient is given Pepcid and Zofran. Patient is likely suffering from ulcer disease secondary to drinking and was started on a 14 day course of omeprazole. - Diagnoses Provider Diagnoses: Alcohol use, Acid reflux Is Visit Related: No Discharge ED - Sign-Out/Discharge Documenting (check all that apply): Patient Departure - discharge Patient Received Moderate/Deep Sedation with Procedure: No - Discharge Plan Condition: Stable Disposition: HOME Prescriptions: Omeprazole 20 mg PO QAM 14 Days #14 capsule. Patient Education Materials: Acute Nausea and Vomiting (ED) Referrals: [facility] [Outside] - 3 Days Additional Instructions: PLEASE RETURN TO EMERGENCY DEPARTMENT FOR ANY NEW OR WORSENING SYMPTOMS ESPECIALLY VOMITING. FOLLOW UP WITH YOUR PRIMARY CARE PHYSICIAN IN 1-3 DAYS. Take prescription as prescribed and refrain from heavy drinking. - Billing Disposition and Condition Condition: STABLE Disposition: Home - Attestation Statements Document Initiated by Dudleyibe: Yes Documenting Scribe: Vivienne Lozano Provider For Whom Alison is Documenting (Include Credential): Dr. Jani Larkin MD Scribe Attestation: Vivienne Ruano scribed for Dr. Jani Larkin MD on 04/21/19 at 2114. Scribe Documentation Reviewed: Yes Provider Attestation: The documentation as recorded by the Vivienne mason accurately reflects the service I personally performed and the decisions made by me, Dr. Jani Larkin MD Status of Scribe Document: Viewed
[2019-04-21 16:26] LABS: ABS Basophils 0.1 10^3/ul (0-0.2); ABS Eosinophils 0.1 10^3/ul (0-0.6); ABS Lymphocytes 2.4 10^3/ul (1.0-4.8); ABS Monocytes 0.4 10^3/ul (0-0.8); ABS Neutrophils 3.2 10^3/ul (1.5-7.7); Eosinophil % 2.1 %; Hematocrit 38 % (35-47); Hemoglobin 12.6 g/dL (12.0-16.0); Lymphocyte % 38.7 %; Mean Corpuscular HGB Conc 34 g/dL (31-36); Mean Corpuscular Hemoglobin 29 pg (27-31); Mean Corpuscular Volume 86 fL (80-97); Nucleated Red Blood Cells % 0.2; Platelet Count 136 10^3/uL (150-450); Red Blood Count 4.35 10^6 /uL (3.70-4.87); Red Cell Distribution Width 13 % (10-15); White Blood Count 6.2 10^3/uL (3.5-10.8)
[2019-04-21 16:45] LABS: Albumin 4.5 g/dL (3.2-5.2); Albumin/Globulin Ratio 2.1 (1-3); BUN/Creatinine Ratio 13.7 (8-20); Calcium 9.1 mg/dL (8.6-10.3); EGFR African American 118.5 (>60); EGFR Non-African American 97.9 (>60); Globulin 2.1 g/dL (2-4); Potassium 3.8 mmol/L (3.5-5.0); Total Bilirubin 0.5 mg/dL (0.2-1.0); Total Protein 6.6 g/dL (6.4-8.9)
[2019-04-21 16:51] LABS: HCG Pregnancy 0.91 mIU/mL
[2019-04-21 17:21] VITALS: BP 120/59
== END 2019-04-21 17:10 | disposition home or self-care (01) ==
LOC: ED 13:28
DX: K21.9 Gastro-esophageal reflux disease without esophagitis (principal); Z72.89 Other problems related to lifestyle; F17.210 Nicotine dependence, cigarettes, uncomplicated
CPT/HCPCS: 36415; 76705; 80053; 81003; 83690; 84702; 85025; 96361; 96374; 96375; 99282; J2405